=== PATIENT | female | born 2000 | race Caucasian/White ===

== ENCOUNTER 2018-02-12 08:03 | Emergency (ER) | payer BC ==
--- NOTE | 2018-02-12 08:33 | EDM.PDOC ---
ED HPI GENERAL MEDICAL PROBLEM - General Chief Complaint: Abdominal Pain Stated Complaint: ABDOMINAL PAIN Time Seen by Provider: 02/12/18 08:20 - History of Present Illness INITIAL COMMENTS - FREE TEXT/NARRATIVE: HISTORY AND PHYSICAL: History of present illness: The patient is a healthy 17-year-old female with a history of regular menstrual cycles and last regular period was January 21 presents with 4 days of suprapubic discomfort which does not localize right or left and does not involve nausea vomiting diarrhea or dysuria. She has not had any vaginal discharge and has not had any spotting between her periods and had her appendix removed 5 years ago. She has no history such as ovarian cysts or prior STDs and is in a monogamous relationship but is not using contraception. The patient did a test yesterday that was negative. She has no flank pain no upper abdominal pain no fevers chills or upper respiratory symptoms. The patient tried both Tylenol and Aleve and still feels discomfort. She is eating and drinking normally. Local family Dr. and has never had a gynecologic exam. The patient describes the pain as deep aching and stabbing. Review of systems: As per history of present illness and below otherwise all systems reviewed and negative. Past medical history: As per history of present illness and as reviewed below otherwise noncontributory. Surgical history: As per history of present illness and as reviewed below otherwise noncontributory. Social history: No reported history of drug or alcohol abuse. Family history: As per history of present illness and as reviewed below otherwise noncontributory. Physical exam: General: Well-developed well-nourished female who is nontoxic and moves easily in the ED. Vital signs are reviewed by me. HEENT: Atraumatic, normocephalic, negative for conjunctival pallor or scleral icterus, mucous membranes moist, throat clear, neck supple, nontender, trachea midline. Lungs: Clear to auscultation, breath sounds equal bilaterally, chest nontender. Heart: S1S2, regular rate and rhythm no overt murmurs Abdomen: Soft, nondistended, nontender on deep palpation and bowel sounds are normoactive.. Negative for masses or hepatosplenomegaly. Negative for costovertebral tenderness. Pelvis: Stable nontender. Genitourinary: External genitalia within normal limits and there is no overt vaginal bleeding or vaginal discharge. There was no cervical motion tenderness no uterine tenderness and the uterus is small and there is no adnexal fullness tenderness or masses appreciated. The patient was able to relax and tolerated the exam very well. Rectal: Deferred. Extremities: Atraumatic, negative for cords or calf pain. Neurovascular unremarkable. Neuro: Awake, alert, oriented. Cranial nerves II through XII unremarkable. Cerebellum unremarkable. Motor and sensory unremarkable throughout. Exam nonfocal. Diagnostics: UA urine culture UCG urine for gonorrhea and chlamydia Therapeutics: [] The patient has been given Pyridium and Cipro for home Impression: Suprapubic pain/UTI Definitive disposition and diagnosis as appropriate pending reevaluation and review of above. hypogastric Pain Score (Numeric/FACES): 7 - Related Data Allergies Allergy/AdvReac Type Severity Reaction Status Date / Time No Known Allergies Allergy Verified 02/12/18 08:19 Home Meds: Home Meds . [No Known Home Meds] 02/12/18 [History] Past Medical History - Past Surgical History GI Surgical History: Reports: Appendectomy Social & Family History - Family History Family Medical History: Noncontributory - Tobacco Use Smoking Status *Q: Never Smoker - Recreational Drug Use Recreational Drug Use: Yes Drug Use in Last 12 Months: Yes Recreational Drug Type: Reports: Marijuana/Hashish Recreational Drug Use Frequency: Rarely ED ROS GENERAL - Review of Systems Review Of Systems: ROS reveals no pertinent complaints other than HPI. ED EXAM, GENERAL - Physical Exam Exam: See Below (See dictation) Course - Vital Signs Last Recorded V/S: Last Vital Signs Temp 36.4 C 02/12/18 08:03 Pulse 63 02/12/18 08:03 Resp 18 02/12/18 08:03 BP 142/91 H 02/12/18 08:03 Pulse Ox 98 02/12/18 08:03 - Orders/Labs/Meds Orders: Active Orders 24 hr Category Date Time Status CHLAMYDIA AND GONORRHEA BY TMA Stat Lab 02/12/18 08:30 Ordered CULTURE URINE [RM] Stat Lab 02/12/18 08:20 Ordered HCG QUALITATIVE,URINE [URCHEM] Stat Lab 02/12/18 08:20 Ordered UA W/MICROSCOPIC [URIN] Stat Lab 02/12/18 08:20 Ordered Labs: Laboratory Tests 02/12/18 02/12/18 Range/Units 08:20 08:20 Urine Color YELLOW Urine Appearance SLT CLOUDY Urine pH 6.0 (5.0-8.0) Ur Specific Gaffney >= 1.030 (1.001-1.035) Urine Protein >=300 (NEGATIVE) mg/dL Urine Glucose (UA) NEGATIVE (NEGATIVE) mg/dL Urine Ketones TRACE H (NEGATIVE) mg/dL Urine Occult Blood SMALL H (NEGATIVE) Urine Nitrite NEGATIVE (NEGATIVE) Urine Bilirubin SMALL H (NEGATIVE) Urine Ictotest NEGATIVE Urine Urobilinogen 0.2 (<2.0) EU/dL Ur Leukocyte Esterase TRACE (NEGATIVE) Urine RBC 0-2 (0-2/HPF) Urine WBC 20-25 (0-5/HPF) Ur Epithelial Cells MOL (NONE-FEW) Urine Bacteria 1+ H (NEGATIVE) Urine Mucus LIGHT (NONE-MOD) Urine HCG, Qual NEGATIVE (NEGATIVE) Departure - Departure Time of Disposition: 09:10 Disposition: Home, Self-Care 01 Condition: Good Clinical Impression: Suprapubic pain UTI (urinary tract infection) Qualifiers: Urinary tract infection type: site unspecified Hematuria presence: without hematuria Qualified Code(s): N39.0 - Urinary tract infection, site not specified - Discharge Information Referrals: PCP,None [Primary Care Provider] - Forms: ED Department Discharge Additional Instructions: The following information is given to patients seen in the emergency department who are being discharged to home. This information is to outline your options for follow-up care. We provide all patients seen in our emergency department with a follow-up referral. The need for follow-up, as well as the timing and circumstances, are variable depending upon the specifics of your emergency department visit. If you don't have a primary care physician on staff, we will provide you with a referral. We always advise you to contact your personal physician following an emergency department visit to inform them of the circumstance of the visit and for follow-up with them and/or the need for any referrals to a consulting specialist. The emergency department will also refer you to a specialist when appropriate. This referral assures that you have the opportunity for followup care with a specialist. All of these measure are taken in an effort to provide you with optimal care, which includes your followup. Under all circumstances we always encourage you to contact your private physician who remains a resource for coordinating your care. When calling for followup care, please make the office aware that this follow-up is from your recent emergency room visit. If for any reason you are refused follow-up, please contact the [facility] emergency department at and ask to speak to the emergency department charge nurse. [facility] [address] [address] Please call and schedule a follow-up appointment using the resources given to today as we discussed. These push hydration and avoid caffeinated products. Please use contraception and less you choose to get . He will be contacted with culture results from tests that were sent off today in the next few days if the tests are positive otherwise if the tests are negative he will not be contacted. He will also be contacted if the care plan needs to change in any way. Return to ER as needed and as discussed. You have been given antibiotics and Pyridium for discomfort. Please take these as directed. - My Orders Last 24 Hours: My Active Orders 02/12/18 08:20 CULTURE URINE [RM] Stat HCG QUALITATIVE,URINE [URCHEM] Stat UA W/MICROSCOPIC [URIN] Stat 02/12/18 08:30 CHLAMYDIA AND GONORRHEA BY TMA Stat - Assessment/Plan Last 24 Hours: My Active Orders 02/12/18 08:20 CULTURE URINE [RM] Stat HCG QUALITATIVE,URINE [URCHEM] Stat UA W/MICROSCOPIC [URIN] Stat 02/12/18 08:30 CHLAMYDIA AND GONORRHEA BY TMA Stat
== END 2018-02-12 09:35 | disposition home or self-care (01) ==
LOC: MW.ED 08:03
DX: N39.0 Urinary tract infection, site not specified (principal)
CPT/HCPCS: 81001; 81025; 87086; 87491; 87591; 99282; 99284

== ENCOUNTER 2018-07-16 15:00 | Emergency (ER) | payer BC ==
[2018-07-16] MEDS ORDERED: Sodium Chloride 0.9% 1,000 ML IV ONE (15:09)
--- NOTE | 2018-07-16 15:13 | EDM.PDOC ---
ED HPI GENERAL MEDICAL PROBLEM - General Chief Complaint: Syncope Stated Complaint: BLACKING OUT Time Seen by Provider: 07/16/18 15:05 - History of Present Illness INITIAL COMMENTS - FREE TEXT/NARRATIVE: HISTORY AND PHYSICAL: History of present illness: Patient's a 17-year-old white female approximately 19 weeks who presents with a concern of feeling dizzy earlier in like she may pass out she sat down subsequently and this resolved with drinking some water she states she' s had poor oral intake due to intermittent nausea with this and vaginal discharge bleeding Review of systems: As per history of present illness and below otherwise all systems reviewed and negative. Past medical history: As per history of present illness and as reviewed below otherwise noncontributory. Surgical history: As per history of present illness and as reviewed below otherwise noncontributory. Social history: No reported history of drug or alcohol abuse. Family history: As per history of present illness and as reviewed below otherwise noncontributory. Physical exam: HEENT: Atraumatic, normocephalic, pupils reactive, negative for conjunctival pallor or scleral icterus, mucous membranes dry, throat clear, neck supple, nontender, trachea midline. Lungs: Clear to auscultation, breath sounds equal bilaterally, chest nontender. Heart: S1S2, regular, negative for clicks, rubs, or JVD. Abdomen: Soft, nondistended, nontender. Negative for masses or hepatosplenomegaly. Negative for costovertebral tenderness. Pelvis: Stable nontender. Genitourinary: Deferred. Rectal: Deferred. Extremities: Atraumatic, negative for cords or calf pain. Neurovascular unremarkable. Neuro: Awake, alert, oriented. Cranial nerves II through XII unremarkable. Cerebellum unremarkable. Motor and sensory unremarkable throughout. Exam nonfocal. Diagnostics: CBC CMP heart tones EKG orthostatic vitals Therapeutics: Saline 1 L bolus Impression: #1 second trimester intrauterine #2 dehydration #3 near syncope Definitive disposition and diagnosis as appropriate pending reevaluation and review of above. - Related Data Allergies Allergy/AdvReac Type Severity Reaction Status Date / Time No Known Allergies Allergy Verified 07/16/18 15:11 Home Meds: Home Meds Docosahexanoic Acid [ Dha] 1 tab PO DAILY 07/16/18 [History] Past Medical History - Past Surgical History GI Surgical History: Reports: Appendectomy Social & Family History - Family History Family Medical History: Noncontributory ED ROS GENERAL - Review of Systems Review Of Systems: ROS reveals no pertinent complaints other than HPI. ED EXAM, GENERAL - Physical Exam Exam: See Below (Dictation) Course - Vital Signs Last Recorded V/S: Last Vital Signs Temp 36.5 C 07/16/18 15:04 Pulse 85 07/16/18 15:04 Resp 18 07/16/18 15:04 BP 115/68 07/16/18 15:04 Pulse Ox 98 07/16/18 15:04 - Orders/Labs/Meds Orders: Active Orders 24 hr Category Date Time Status EKG Documentation Completion [RC] STAT Care 07/16/18 15:08 Active Heart Tones [RC] ASDIRECTED Care 07/16/18 15:08 Active Labs: Laboratory Tests 07/16/18 07/16/18 Range/Units 15:24 15:24 WBC 8.35 (4.0-11.0) K/uL RBC 3.83 L (4.30-5.90) M/uL Hgb 11.9 L (12.0-16.0) g/dL Hct 34.1 L (36.0-46.0) % MCV 89.0 (80.0-98.0) fL MCH 31.1 (27.0-32.0) pg MCHC 34.9 (31.0-37.0) g/dL RDW Std Deviation 43.8 (28.0-62.0) fl RDW Coeff of Maya 13 (11.0-15.0) % Plt Count 197 (150-400) K/uL MPV 10.30 (7.40-12.00) fL Neut % (Auto) 83.1 H (48.0-80.0) % Lymph % (Auto) 9.0 L (16.0-40.0) % Ashley % (Auto) 6.9 (0.0-15.0) % Eos % (Auto) 0.8 (0.0-7.0) % Baso % (Auto) 0.2 (0.0-1.5) % Neut # (Auto) 6.9 H (1.4-5.7) K/uL Lymph # (Auto) 0.8 (0.6-2.4) K/uL Ashley # (Auto) 0.6 (0.0-0.8) K/uL Eos # (Auto) 0.1 (0.0-0.7) K/uL Baso # (Auto) 0.0 (0.0-0.1) K/uL Nucleated RBC % 0.0 /100WBC Nucleated RBCs # 0 K/uL Sodium 136 (136-145) mmol/L Potassium 3.5 (3.5-5.1) mmol/L Chloride 104 (98-107) mmol/L Carbon Dioxide 22.7 (21.0-32.0) mmol/L BUN 10 (7.0-18.0) mg/dL Creatinine 0.7 (0.6-1.0) mg/dL Est Cr Clr Drug Dosing 121.01 mL/min Estimated GFR (MDRD) > 60.0 ml/min Glucose 87 (74-106) mg/dL Calcium 9.6 (8.5-10.1) mg/dL Total Bilirubin 0.5 (0.2-1.0) mg/dL AST 14 L (15-37) IU/L ALT 15 (14-63) IU/L Alkaline Phosphatase 54 (46-116) U/L Total Protein 7.1 (6.4-8.2) g/dL Albumin 3.4 (3.4-5.0) g/dL Globulin 3.7 (2.6-4.0) g/dL Albumin/Globulin Ratio 0.9 (0.9-1.6) Meds: Medications Discontinued Medications Generic Name Dose Route Start Last Admin Trade Name Freq PRN Reason Stop Dose Admin Sodium Chloride 1,000 mls @ 999 mls/hr 07/16/18 15:09 07/16/18 15:33 Normal Saline IV 07/16/18 16:09 999 mls/hr STAT ONE Administration Departure - Departure Time of Disposition: 16:12 Disposition: Home, Self-Care 01 Condition: Good Clinical Impression: Second trimester , Dehydration, Near syncope - Discharge Information Referrals: PCP,None [Primary Care Provider] - Forms: ED Department Discharge Additional Instructions: The following information is given to patients seen in the emergency department who are being discharged to home. This information is to outline your options for follow-up care. We provide all patients seen in our emergency department with a follow-up referral. The need for follow-up, as well as the timing and circumstances, are variable depending upon the specifics of your emergency department visit. If you don't have a primary care physician on staff, we will provide you with a referral. We always advise you to contact your personal physician following an emergency department visit to inform them of the circumstance of the visit and for follow-up with them and/or the need for any referrals to a consulting specialist. The emergency department will also refer you to a specialist when appropriate. This referral assures that you have the opportunity for followup care with a specialist. All of these measure are taken in an effort to provide you with optimal care, which includes your followup. Under all circumstances we always encourage you to contact your private physician who remains a resource for coordinating your care. When calling for followup care, please make the office aware that this follow-up is from your recent emergency room visit. If for any reason you are refused follow-up, please contact the [facility] emergency department at and asked to speak to the emergency department charge nurse. [facility] [address] [place] [address] Push fluids follow up clinic above: Schedule routine appointment follow-up FLAT [employer]TER as needed as discussed and return as needed as discussed - My Orders Last 24 Hours: My Active Orders 07/16/18 15:08 EKG Documentation Completion [RC] STAT Heart Tones [RC] ASDIRECTED - Assessment/Plan Last 24 Hours: My Active Orders 07/16/18 15:08 EKG Documentation Completion [RC] STAT Heart Tones [RC] ASDIRECTED
[2018-07-16 15:55] LABS: CHLORIDE,CL 104 mmol/L (98-107); SODIUM,NA 136 mmol/L (136-145)
== END 2018-07-16 16:33 | disposition home or self-care (01) ==
LOC: MW.ED 15:00
DX: O99.282 Endocrine, nutritional and metabolic diseases complicating pregnancy, second trimester (principal); E86.0 Dehydration; R55 Syncope and collapse; Z3A.19 19 weeks gestation of pregnancy
CPT/HCPCS: 36415; 80053; 85025; 93005; 96360; 99284; J7040

== ENCOUNTER 2018-11-30 09:59 | Inpatient (IN) | payer BC ==
[2018-11-30] MEDS: Lactated Ringers 1,000 ML IV SCH ×4 (11:05→21:41)
[2018-11-30] MEDS ORDERED: Terbutaline 1 MG/ML SDV SUBCUT ONE (11:08)
--- NOTE | 2018-11-30 12:17 | PCM.PREANE ---
Preanesthetic Assessment - Allergies Allergies/Adverse Reactions: Allergies Allergy/AdvReac Type Severity Reaction Status Date / Time Latex, Natural Rubber Allergy Rash Verified 11/30/18 10:14 PreAnesthesia Questionnaire - Infectious Disease History Infectious Disease History: Reports: Chicken Pox - Past Surgical History GI Surgical History: Reports: Appendectomy - HOME MEDS Home Medications: Home Meds Docosahexanoic Acid [ Dha] 1 tab PO DAILY 07/16/18 [History]
--- NOTE | 2018-11-30 16:00 | PCM.PREANE ---
Preanesthetic Assessment - Anesthesia/Transfusion/Family Hx Anesthesia History: Prior Anesthesia Without Reaction Family History of Anesthesia Reaction: No Transfusion History: No Prior Transfusion(s) Intubation History: Unknown - Review of Systems General: No Symptoms Pulmonary: No Symptoms Cardiovascular: No Symptoms Gastrointestinal: No Symptoms Neurological: No Symptoms Other: Reports: None - Physical Assessment Height: 5 ft 7 in Weight: 78.018 kg ASA Class: 2 Mental Status: Alert & Oriented x3 Airway Class: Mallampati = 2 Dentition: Reports: Normal Dentition Thyro-Mental Finger Breadths: 3 Mouth Opening Finger Breadths: 3 ROM/Head Extension: Full Lungs: Clear to Auscultation, Normal Respiratory Effort Cardiovascular: Regular Rate, Regular Rhythm - Allergies Allergies/Adverse Reactions: Allergies Allergy/AdvReac Type Severity Reaction Status Date / Time Latex, Natural Rubber Allergy Rash Verified 11/30/18 10:14 - Blood Blood Available: No - Anesthesia Plan Pre-Op Medication Ordered: None - Acknowledgements Anesthesia Type Planned: Spinal (general anesthesia back-up plan) Pt an Appropriate Candidate for the Planned Anesthesia: Yes Alternatives and Risks of Anesthesia Discussed w Pt/Guardian: Yes Pt/Guardian Understands and Agrees with Anesthesia Plan: Yes PreAnesthesia Questionnaire HEENT History: Reports: Impaired Vision Cardiovascular History: Reports: None Respiratory History: Reports: Asthma, Other (See Below) 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 Gastrointestinal History: Reports: None Genitourinary History: Reports: None MARKETING DIRECTOR ASSISTED LIVING History: Reports: Musculoskeletal History: Reports: None Neurological History: Reports: Headaches, Chronic, Head Trauma Psychiatric History: Reports: Panic Attack Endocrine/Metabolic History: Reports: None Hematologic History: Reports: None Immunologic History: Reports: None Oncologic (Cancer) History: Reports: None Dermatologic History: Reports: None - Infectious Disease History Infectious Disease History: Reports: Chicken Pox, Shingles - Past Surgical History HEENT Surgical History: Reports: None GI Surgical History: Reports: Appendectomy Female Surgical History: Reports: None - SUBSTANCE USE Smoking Status *Q: Never Smoker Second Hand Smoke Exposure: No Recreational Drug Use History: No - HOME MEDS Home Medications: Home Meds Docosahexanoic Acid [ Dha] 1 tab PO DAILY 07/16/18 [History] - CURRENT (IN HOUSE) MEDS Current Meds: Current Medications Lactated Ringer's (Ringers, Lactated) 1,000 mls @ 999 mls/hr IV ASDIRECTED DAVID Last Admin: 11/30/18 11:45 Dose: 999 mls/hr Discontinued Medications Terbutaline Sulfate (Brethine) 0.25 mg SUBCUT ONETIME ONE Stop: 11/30/18 11:09
[2018-11-30] MEDS ORDERED: Ondansetron 4 MG/2 ML SDV ONE (16:13)
[2018-11-30] MEDS ORDERED: Propofol 200 MG/20 ML SDV ONE (16:13)
[2018-11-30] MEDS ORDERED: Oxytocin 10 Units/1 ML SDV ONE (16:14)
[2018-11-30] MEDS ORDERED: Morphine PF 10 MG/10 ML SDV ONE (16:36)
[2018-11-30] MEDS ORDERED: ceFAZolin 1 GM Vial ONE (16:48)
[2018-11-30] MEDS ORDERED: Sodium Chloride 0.9% 20 ML ONE (16:48)
--- NOTE | 2018-11-30 16:48 | PCM.LDHP ---
L&D History of Present Illness - General Date of Service: 11/30/18 Admit Problem/Dx: Patient Status Order with Admit Dx/Problem 11/30/18 10:52 Patient Status [ADT] Routine Admission Diagnosis/Problem Admission Diagnosis/Problem 11/30/18 16:43 18yo EDC 12/08/2018 38 6/7wks O+, R-equivocal, GBS neg. 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 Source of Information: Patient History Limitations: Reports: No Limitations - History of Present Illness Improves with: Reports: None Worsens with: Reports: None Associated Symptoms: Reports: N - Related Data Allergies/Adverse Reactions: Allergies Allergy/AdvReac Type Severity Reaction Status Date / Time Latex, Natural Rubber Allergy Rash Verified 11/30/18 10:14 Home Medications: Home Meds Docosahexanoic Acid [ Dha] 1 tab PO DAILY 07/16/18 [History] Past Medical History HEENT History: Reports: Impaired Vision Cardiovascular History: Reports: None Respiratory History: Reports: Asthma, Other (See Below) 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 Gastrointestinal History: Reports: None Genitourinary History: Reports: None [employer] SUPERVISOR History: Reports: Musculoskeletal History: Reports: None Neurological History: Reports: Headaches, Chronic, Head Trauma Psychiatric History: Reports: Panic Attack Endocrine/Metabolic History: Reports: None Hematologic History: Reports: None Immunologic History: Reports: None Oncologic (Cancer) History: Reports: None Dermatologic History: Reports: None - Infectious Disease History Infectious Disease History: Reports: Chicken Pox, Shingles - Past Surgical History HEENT Surgical History: Reports: None GI Surgical History: Reports: Appendectomy Female Surgical History: Reports: None Social & Family History - Family History Family Medical History: Noncontributory HEENT: Reports: Impaired Vision Cardiac: Reports: Heart Failure, Hypertension, IN Respiratory: Reports: Asthma GI: Reports: None : Reports: None OBGYN: Reports: Musculoskeletal: Reports: Arthritis Neurological: Reports: Alzheimers Disease, CVA, Neuropathy, Peripheral Psychiatric: Reports: Anxiety Endocrine/Metabolic: Reports: Diabetes, type II, Obesity/MBI 30+ Hematologic: Reports: Bleeding Disorder Immunologic: Reports: None Dermatologic: Reports: None Oncologic: Reports: Breast, Liver, Metastatic - Tobacco Use Smoking Status *Q: Never Smoker Second Hand Smoke Exposure: No - Caffeine Use Caffeine Use: Reports: Soda - Recreational Drug Use Recreational Drug Use: No H&P Review of Systems - Review of Systems: Review Of Systems: See Below General: Reports: No Symptoms HEENT: Reports: No Symptoms Pulmonary: Reports: No Symptoms Cardiovascular: Reports: No Symptoms Gastrointestinal: Reports: No Symptoms Genitourinary: Reports: No Symptoms Musculoskeletal: Reports: No Symptoms Skin: Reports: No Symptoms Psychiatric: Reports: No Symptoms Neurological: Reports: No Symptoms Hematologic/Lymphatic: Reports: No Symptoms Immunologic: Reports: No Symptoms L&D Exam - Exam Exam: See Below - Vital Signs Weight: 78.018 kg - OB Specific Movement: Active Heart Tones: Present Heart Rate (FHR) Variability: Moderate (6-25 bmp) Presentation: Vertex - Exam General: Alert, Oriented, Cooperative, Mild Distress Lungs: Clear to Auscultation, Normal Respiratory Effort. No: Decreased Breath Sounds Cardiovascular: Regular Rate, Regular Rhythm, Normal S1, Normal S2. No: Irregular Rhythm GI/Abdominal Exam: Soft, Non-Tender Rectal Exam: Deferred Genitourinary: Deferred Back Exam: Normal Inspection, Full Range of Motion Extremities: Normal Inspection, Normal Range of Motion, Non-Tender, No Pedal Edema Skin: Warm, Dry, Intact Neurological: Cranial Nerves Intact, Strength Equal Bilateral, Normal Gait, Normal Speech, Normal Tone Psychiatric: Alert, Normal Affect, Normal Mood - Problem List (1) Supervision of normal IUP (intrauterine ) in primigravida SNOMED Code(s): 83726808, 977866340, [id number], [id number] ICD Code: Z34.00 - ENCNTR FOR SUPRVSN OF NORMAL FIRST , UNSP TRIMESTER Status: Acute Current Visit: Yes Qualifiers: Trimester: third trimester Qualified Code(s): Z34.03 - Encounter for supervision of normal first , third trimester Problem List Initiated/Reviewed/Updated: Yes Orders Last 24hrs: Active Orders 24 hr Category Date Time Status Patient Status [ADT] Routine ADT 11/30/18 10:52 Active Non Stress Test [RC] PER UNIT ROUTINE Care 11/30/18 10:52 Active Up ad Liliana [RC] ASDIRECTED Care 11/30/18 10:52 Active Vaginal Exam [RC] Click to Edit Care 11/30/18 10:52 Active Vital Signs [RC] PER UNIT ROUTINE Care 11/30/18 10:52 Active Lactated Ringers [Ringers, Lactated] 1,000 ml Med 11/30/18 11:15 Active IV ASDIRECTED Resuscitation Status Routine Resus Stat 11/30/18 10:51 Ordered Medication Orders Lactated Ringer's (Ringers, Lactated) 1,000 mls @ 999 mls/hr IV ASDIRECTED DAVID Last Admin: 11/30/18 16:19 Dose: 999 mls/hr Infusion: 11/30/18 12:46 Dose: 999 mls/hr Admin: 11/30/18 11:45 Dose: 999 mls/hr Infusion: 11/30/18 11:45 Dose: 999 mls/hr Admin: 11/30/18 11:05 Dose: 999 mls/hr Assessment/Plan Comment:: PCS A: 18yo EDC 12/08/2018 38 6/7wks O+, R-equivocal, GBS neg. 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 Dr Henriquez surgeon.
[2018-11-30] MEDS ORDERED: Sodium Chloride 0.9% 10 ML SDV IV PRN (16:52)
[2018-11-30] MEDS ORDERED: Sodium Chloride 0.9% 2.5 ML Syringe FLUSH PRN (16:52)
[2018-11-30] MEDS ORDERED: ceFAZolin 2 GM in Premix Bag 1 BAG IV ONE (16:52)
[2018-11-30] MEDS ORDERED: Sodium Chloride 0.9% 10 ML Syringe FLUSH PRN (16:52)
[2018-11-30] MEDS ORDERED: Citric Acid/Sodium Citrate Solution 30 ML Cup PO ONE (16:52)
[2018-11-30] MEDS ORDERED: diphenhydrAMINE 50 MG/ML SDV IVPUSH PRN ×2 (16:53→17:57)
[2018-11-30] MEDS ORDERED: Acetaminophen/oxyCODONE 325-5 MG Tab PO PRN ×2 (16:53→17:57)
[2018-11-30] MEDS ORDERED: fentaNYL 100 MCG/2 ML SDV IVPUSH PRN (16:53)
[2018-11-30] MEDS ORDERED: Ondansetron 4 MG/2 ML SDV IVPUSH PRN ×2 (16:53→17:57)
[2018-11-30] MEDS ORDERED: Naloxone 0.4 MG/ML Syringe IVPUSH PRN (16:53)
[2018-11-30] MEDS ORDERED: Oxytocin/0.9 % Sodium Chloride 30 UNIT/500 ML BAG IV SCH (17:00)
[2018-11-30] MEDS ORDERED: Lactated Ringers 1,000 ML IV SCH (17:00)
[2018-11-30] MEDS ORDERED: Bisacodyl 10 MG Supp RECTAL PRN (17:57)
[2018-11-30] MEDS ORDERED: Lanolin 100% Cream 7 GM Tube TOP PRN (17:57)
--- NOTE | 2018-11-30 18:00 | PCM.OPNOTE ---
- General Post-Op/Procedure Note Date of Surgery/Procedure: 11/30/18 Operative Procedure(s): Primary C/section Pre Op Diagnosis: [id number] wks Chandrakant breech presentation. Post-Op Diagnosis: Same Anesthesia Technique: Spinal Primary Surgeon: Reno Henriquez Remittance Clerk: Carissa Burdick EBL in mLs: 600 Complications: None Condition: Good
[2018-11-30] MEDS: Ketorolac 30 MG/ML SDV IVPUSH SCH ×2 (18:38→23:50)
--- NOTE | 2018-11-30 18:49 | PCM.POSTAN ---
POST ANESTHESIA ASSESSMENT - MENTAL STATUS Mental Status: Alert Free Text/Narrative:: Doing well. - VITAL SIGNS Pulse Rate: 58 SaO2: 96 Resp Rate: 12 Blood Pressure: 118/70 Temperature: 38.7 C - RESPIRATORY Respiratory Status: Respiratory Rate WNL - CARDIOVASCULAR CV Status: Pulse Rate WNL - GASTROINTESTINAL GI Status: No Symptoms - PAIN Pain Score: 0 (SAB still inplace) - POST OP HYDRATION Hydration Status: Adequate & Stable (Doing well. Will transfer to room in good condition.)
--- NOTE | 2018-11-30 19:39 | OR ---
SURGEON: Reno Henriquez MD DATE OF PROCEDURE: 11/30/2018 PREOPERATIVE DIAGNOSES: Intrauterine at 39 weeks, bicornuate uterus, breech presentation. POSTOPERATIVE DIAGNOSES: Intrauterine at 39 weeks, bicornuate uterus, breech presentation. OPERATION PERFORMED: Primary low-transverse section. PRIMARY SURGEON: Reno Henriquez MD. LEVERMAN: Carissa Burdick, certified nurse acquisition marketing coordinator. ANESTHESIA: Spinal, Dr. Trejo. ESTIMATED BLOOD LOSS: 600 mL. COMPLICATIONS: None. FINDING: A female fetus in stacey breech presentation. This patient is 18. She is 39 weeks . She is followed in our clinic primarily by our acquisition marketing coordinator. She had a bicornuate uterus. She is found to be in the breech presentation. She is admitted for possible version, but after discussing the version with limited success with a bicornuate uterus with her family, she has elected to have a primary low-transverse section. PROCEDURE IN DETAIL: The patient was brought to the OR, properly identified, and after adequate level of spinal anesthesia with a Hemphill catheter in the bladder, the patient was prepped and draped in sterile fashion as usual, and then, a low-transverse Pfannenstiel skin incision was done. Rectus fascia and Zeferino's fascia were opened in the direction of the incision. The 2 recti muscles were , and peritoneal cavity was entered. Bladder flap was raised in the usual manner pushing the bladder away from the lower uterine segment. Low transverse uterine incision was done and extended manually with hand, fetus was delivered, was in stacey breech presentation, handed to the nurse resuscitator who was present at the time of delivery. The fetus cried immediately. score reported to be 8 and 9. The placenta delivered spontaneous, complete, and intact, and repair of the lower uterine segment was done with 2-0 Vicryl continuous interlocking for hemostasis. The peritoneal cavity evacuated completely from all blood and blood clot and closed with 3-0 Vicryl continuous. The rectus fascia was closed with #1 PDS continuous. Zeferino's fascia with 3-0 Vicryl continuous, skin closed in subcuticular fashion and Dermabond. Instrument and sponge count was correct. The patient tolerated the procedure well, went to recovery room in stable general condition. COLLEEN / FRED /[id number]
[2018-11-30] MEDS: Nalbuphine 10 MG/1 ML Vial IVPUSH PRN (20:14)
[2018-11-30] MEDS: Docusate Sodium 100 MG Cap PO SCH (20:14)
[2018-12-01] MEDS: Nalbuphine 10 MG/1 ML Vial IVPUSH PRN (00:40)
[2018-12-01] MEDS: Lactated Ringers 1,000 ML IV SCH ×2 (05:46→05:51)
[2018-12-01] MEDS: Ketorolac 30 MG/ML SDV IVPUSH SCH ×3 (05:46→18:15)
--- NOTE | 2018-12-01 11:28 | PCM.PNPP ---
- General Info Date of Service: 12/01/18 Admission Dx/Problem (Free Text): Patient Status Order with Admit Dx/Problem 11/30/18 10:52 Patient Status [ADT] Routine Admission Diagnosis/Problem Admission Diagnosis/Problem 11/30/18 16:43 18yo EDC 12/08/2018 38 6/7wks O+, R-equivocal, GBS neg. 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 Functional Status: Reports: Pain Controlled, Tolerating Diet, Ambulating, Urinating (via whitehead) - Review of Systems General: Reports: No Symptoms HEENT: Reports: No Symptoms Pulmonary: Reports: No Symptoms Cardiovascular: Reports: No Symptoms Gastrointestinal: Reports: No Symptoms Genitourinary: Reports: No Symptoms Musculoskeletal: Reports: No Symptoms Skin: Reports: No Symptoms Neurological: Reports: No Symptoms Psychiatric: Reports: No Symptoms - General Info Date of Service: 12/01/18 - Patient Data Vital Signs - Most Recent: Last Vital Signs Temp 36.3 C 12/01/18 07:28 Pulse 51 L 12/01/18 07:28 Resp 16 12/01/18 10:00 BP 107/59 L 12/01/18 07:28 Pulse Ox 98 12/01/18 10:00 Weight - Most Recent: 78.018 kg I&O - Last 24 Hours: Intake & Output 11/30/18 12/01/18 12/01/18 22:59 06:59 14:59 Intake Total 5000 1000 Output Total 700 1600 850 Balance 4300 -600 -850 Lab Results - Last 24 Hours: Laboratory Results - last 24 hr 11/30/18 11/30/18 12/01/18 Range/Units 17:03 17:03 05:51 WBC 9.21 (4.0-11.0) K/uL RBC 3.33 L (4.30-5.90) M/uL Hgb 9.8 L 9.4 L (12.0-16.0) g/dL Hct 30.0 L 29.0 L (36.0-46.0) % MCV 90.1 (80.0-98.0) fL MCH 29.4 (27.0-32.0) pg MCHC 32.7 (31.0-37.0) g/dL RDW Std Deviation 40.3 (28.0-62.0) fl RDW Coeff of Maya 13 (11.0-15.0) % Plt Count 155 (150-400) K/uL MPV 11.70 (7.40-12.00) fL Nucleated RBC % 0.0 /100WBC Nucleated RBCs # 0 K/uL Blood Type O POSITIVE Antibody Screen NEGATIVE Med Orders - Current: Current Medications Bisacodyl (Dulcolax) 10 mg RECTAL ONETIME PRN PRN Reason: Constipation Diphenhydramine HCl (Benadryl) 25 mg IVPUSH Q4H PRN PRN Reason: Itching Stop: 12/01/18 16:53 Last Admin: 11/30/18 21:30 Dose: 25 mg Diphenhydramine HCl (Benadryl) 25 mg IVPUSH Q6H PRN PRN Reason: Itching or Nausea Docusate Sodium (Colace) 100 mg PO BID DAVID Last Admin: 11/30/18 20:14 Dose: 100 mg Emollient Ointment (Lansinoh Hpa) 0 gm TOP ASDIRECTED PRN PRN Reason: Sore Nipples Fentanyl (Sublimaze) 50 mcg IVPUSH Q1H PRN PRN Reason: Pain (severe 7-10) Lactated Ringer's (Ringers, Lactated) 1,000 mls @ 999 mls/hr IV ASDIRECTED [facility] Last Infusion: 11/30/18 17:20 Dose: Infused Lactated Ringer's (Ringers, Lactated) 1,000 mls @ 500 mls/hr IV BOLUS [facility] Oxytocin/Sodium Chloride (Oxytocin 30 Unit/500 Ml-Ns) 30 unit in 500 mls @ 250 mls/hr IV TITRATE [facility] Lactated Ringer's (Ringers, Lactated) 1,000 mls @ 125 mls/hr IV ASDIRECTED [facility] Last Admin: 12/01/18 05:51 Dose: 125 mls/hr Ibuprofen (Motrin) 800 mg PO Q8H PRN PRN Reason: mild pain or fever Ketorolac Tromethamine (Toradol) 30 mg IVPUSH Q6H [facility] Stop: 12/01/18 18:01 Last Admin: 12/01/18 05:46 Dose: 30 mg Nalbuphine HCl (Nubain) 5 mg IVPUSH ASDIRECTED PRN PRN Reason: Itching Last Admin: 12/01/18 00:40 Dose: 5 mg Naloxone HCl (Narcan) 0.1 mg IVPUSH ONETIME PRN PRN Reason: Respiratory Depression Stop: 12/01/18 16:53 Ondansetron HCl (Zofran) 4 mg IVPUSH Q6H PRN PRN Reason: Nausea Ondansetron HCl (Zofran) 4 mg IVPUSH Q4H PRN PRN Reason: Nausea/Vomiting Oxycodone/Acetaminophen (Percocet 325-5 Mg) 2 tab PO Q6H PRN PRN Reason: Pain (moderate 4-6) Oxycodone/Acetaminophen (Percocet 325-5 Mg) 1 tab PO Q4H PRN PRN Reason: Pain (moderate 4-6) Oxycodone/Acetaminophen (Percocet 325-5 Mg) 2 tab PO Q4H PRN PRN Reason: Pain (moderate 4-6) Sodium Chloride (Saline Flush) 10 ml FLUSH ASDIRECTED PRN PRN Reason: Keep Vein Open Sodium Chloride (Saline Flush) 2.5 ml FLUSH ASDIRECTED PRN PRN Reason: Keep Vein Open Sodium Chloride (Normal Saline) 10 ml IV ASDIRECTED PRN PRN Reason: IV Use Discontinued Medications Cefazolin Sodium (Ancef) Confirm Administered Dose 2 gm .ROUTE .STK-MED ONE Stop: 11/30/18 16:49 Citric Acid/Sodium Citrate (Bicitra Solution) 30 ml PO ONETIME ONE Stop: 11/30/18 16:53 Acetaminophen (Ofirmev) Confirm Administered Dose 100 mls @ as directed IV .STK- MED ONE Stop: 11/30/18 16:28 Sodium Chloride (Normal Saline) Confirm Administered Dose 20 mls @ as directed .ROUTE .STK-MED ONE Stop: 11/30/18 16:49 Cefazolin Sodium/Dextrose 2 gm (/ Premix) 50 mls @ 100 mls/hr IV ONETIME ONE Stop: 11/30/18 17:21 Morphine Sulfate (Duramorph Pf) Confirm Administered Dose 10 mg .ROUTE .STK-MED ONE Stop: 11/30/18 16:37 Ondansetron HCl (Zofran) Confirm Administered Dose 4 mg .ROUTE .STK-MED ONE Stop: 11/30/18 16:14 Oxytocin (Pitocin) Confirm Administered Dose 30 unit .ROUTE .STK-MED ONE Stop: 11/30/18 16:15 Propofol (Diprivan 20 Ml) Confirm Administered Dose 200 mg .ROUTE .STK-MED ONE Stop: 11/30/18 16:14 Terbutaline Sulfate (Brethine) 0.25 mg SUBCUT ONETIME ONE Stop: 11/30/18 11:09 - Interaction Disposition, : in Room with Family Infant Interaction: Holding Infant Infant Feeding: Bottle Fed Infant Support Person: Mother, Sister - Recovery Exam Fundal Tone: Firm Fundal Level: 1 Fingerbreadths Below Umbilicus Fundal Placement: Midline Lochia Amount: Small Lochia Color: Rubra/Red Perineum Description: Intact, Minimal Bruising/Swelling Episiotomy/Laceration: None - Exam General: Alert, Oriented, Cooperative, No Acute Distress Lungs: Normal Respiratory Effort GI/Abdominal Exam: Soft, Non-Tender Extremities: Normal Inspection, Non-Tender, No Pedal Edema Skin: Warm, Dry, Intact Wound/Incisions: Healing Well, Dressing Dry and Intact Neurological: No New Focal Deficit, Normal Speech, Normal Tone, Strength Equal Bilateral Psy/Mental Status: Alert, Normal Affect, Normal Mood - Problem List & Annotations (1) Supervision of normal IUP (intrauterine ) in primigravida SNOMED Code(s): 83118193, 584987370, 734498502, 910727805 Code(s): Z34.00 - ENCNTR FOR SUPRVSN OF NORMAL FIRST , UNSP TRIMESTER Status: Acute Current Visit: Yes Qualifiers: Trimester: third trimester Qualified Code(s): Z34.03 - Encounter for supervision of normal first , third trimester (2) delivery indicated due to breech presentation SNOMED Code(s): 779209215, 170164045 Code(s): O32.1XX0 - MATERNAL CARE FOR BREECH PRESENTATION, UNSP Status: Acute Priority: High Current Visit: Yes - Problem List Review Problem List Initiated/Reviewed/Updated: Yes - Plan Plan:: PCS A: 18yo EDC 12/08/2018 38 6/7wks O+, R-equivocal, GBS neg. 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 Dr Kadum surgeon. PPD#1 A: VSS, AF, Lochia small, Fundus firm -2bu. Bonding well with infant, pain well managed. P; continue pp POC. Encouraged to get OOB and walk.
[2018-12-01] MEDS: Docusate Sodium 100 MG Cap PO SCH ×2 (12:14→20:42)
[2018-12-02] MEDS ORDERED: Ibuprofen 800 MG Tab PO PRN
[2018-12-02] MEDS: Acetaminophen/oxyCODONE 325-5 MG Tab PO PRN ×3 (00:06→10:34)
--- NOTE | 2018-12-02 07:53 | PCM.DCSUM1 ---
Discharge Summary - Hospital Course Free Text/Narrative:: Discharge home with . Follow up in 6 weeks for incision check and 6 weeks for . Diagnosis: Stroke: No - Discharge Data Discharge Date: 12/02/18 Discharge Disposition: Home, Self-Care 01 Condition: Good - Discharge Diagnosis/Problem(s) (1) Supervision of normal IUP (intrauterine ) in primigravida SNOMED Code(s): 99164781, 690966749, 899485914, 290692253 ICD Code: Z34.00 - ENCNTR FOR SUPRVSN OF NORMAL FIRST , UNSP TRIMESTER Status: Acute Current Visit: Yes Qualifiers: Trimester: third trimester Qualified Code(s): Z34.03 - Encounter for supervision of normal first , third trimester (2) delivery indicated due to breech presentation SNOMED Code(s): 991200024, 926694716 ICD Code: O32.1XX0 - MATERNAL CARE FOR BREECH PRESENTATION, UNSP Status: Acute Priority: High Current Visit: Yes - Patient Summary/Data Operative Procedure(s) Performed: Primary C/section - Patient Instructions Diet: Usual Diet as Tolerated Activity: As Tolerated, No Strenuous Activities, Rest and Relax Today Driving: Do Not Drive Showering/Bathing: May Shower Wound/Incision Care: Keep Operative Site/Wound Site Clean and Dry Notify Provider of: Fever, Increased Pain, Swelling and Redness, Drainage, Nausea and/or Vomiting Other/Special Instructions: Discharge home with . Follow up in 6 weeks for incision check and 6 weeks for . - Discharge Plan *PRESCRIPTION DRUG MONITORING PROGRAM REVIEWED*: Not Applicable *COPY OF PRESCRIPTION DRUG MONITORING REPORT IN PATIENT LYNN: Not Applicable Prescriptions/Med Rec: Acetaminophen/oxyCODONE [Percocet 325-5 MG] 2 tab PO Q6H PRN #30 tablet PRN Reason: Pain (Moderate 4-6) Ibuprofen [Motrin] 800 mg PO Q8H PRN #90 tablet PRN Reason: mild pain or fever Home Medications: Home Meds Docosahexanoic Acid [ Dha] 1 tab PO DAILY 07/16/18 [History] Acetaminophen/oxyCODONE [Percocet 325-5 MG] 2 tab PO Q6H PRN #30 tablet [Rx] Ibuprofen [Motrin] 800 mg PO Q8H PRN #90 tablet 12/02/18 [Rx] Oxygen Therapy Mode: Room Air - Discharge Summary/Plan Comment DC Time >30 min.: Yes - General Info Date of Service: 12/02/18 Admission Dx/Problem (Free Text: Patient Status Order with Admit Dx/Problem 11/30/18 10:52 Patient Status [ADT] Routine Admission Diagnosis/Problem Admission Diagnosis/Problem 11/30/18 16:43 18yo EDC 12/08/2018 38 6/7wks O+, R-equivocal, GBS neg. 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 Functional Status: Reports: Pain Controlled, Tolerating Diet, Ambulating, Urinating - Review of Systems General: Reports: No Symptoms HEENT: Reports: No Symptoms Pulmonary: Reports: No Symptoms Cardiovascular: Reports: No Symptoms Gastrointestinal: Reports: No Symptoms Genitourinary: Reports: No Symptoms Musculoskeletal: Reports: No Symptoms Skin: Reports: No Symptoms Neurological: Reports: No Symptoms Psychiatric: Reports: No Symptoms - Patient Data Vitals - Most Recent: Last Vital Signs Temp 36.9 C 12/02/18 07:09 Pulse 56 L 12/02/18 07:09 Resp 14 12/02/18 07:09 BP 99/48 L 12/02/18 07:09 Pulse Ox 97 12/02/18 07:09 Weight - Most Recent: 78.018 kg Med Orders - Current: Current Medications Bisacodyl (Dulcolax) 10 mg RECTAL ONETIME PRN PRN Reason: Constipation Diphenhydramine HCl (Benadryl) 25 mg IVPUSH Q6H PRN PRN Reason: Itching or Nausea Docusate Sodium (Colace) 100 mg PO BID [facility] Last Admin: 12/01/18 20:42 Dose: 100 mg Emollient Ointment (Lansinoh Hpa) 0 gm TOP ASDIRECTED PRN PRN Reason: Sore Nipples Fentanyl (Sublimaze) 50 mcg IVPUSH Q1H PRN PRN Reason: Pain (severe 7-10) Lactated Ringer's (Ringers, Lactated) 1,000 mls @ 999 mls/hr IV ASDIRECTED [facility]ID Last Infusion: 11/30/18 17:20 Dose: Infused Lactated Ringer's (Ringers, Lactated) 1,000 mls @ 500 mls/hr IV BOLUS [facility] Oxytocin/Sodium Chloride (Oxytocin 30 Unit/500 Ml-Ns) 30 unit in 500 mls @ 250 mls/hr IV TITRATE [facility] Lactated Ringer's (Ringers, Lactated) 1,000 mls @ 125 mls/hr IV ASDIRECTED [facility] Last Admin: 12/01/18 05:51 Dose: 125 mls/hr Ibuprofen (Motrin) 800 mg PO Q8H PRN PRN Reason: mild pain or fever Nalbuphine HCl (Nubain) 5 mg IVPUSH ASDIRECTED PRN PRN Reason: Itching Last Admin: 12/01/18 00:40 Dose: 5 mg Ondansetron HCl (Zofran) 4 mg IVPUSH Q6H PRN PRN Reason: Nausea Ondansetron HCl (Zofran) 4 mg IVPUSH Q4H PRN PRN Reason: Nausea/Vomiting Oxycodone/Acetaminophen (Percocet 325-5 Mg) 2 tab PO Q6H PRN PRN Reason: Pain (moderate 4-6) Oxycodone/Acetaminophen (Percocet 325-5 Mg) 1 tab PO Q4H PRN PRN Reason: Pain (moderate 4-6) Oxycodone/Acetaminophen (Percocet 325-5 Mg) 2 tab PO Q4H PRN PRN Reason: Pain (moderate 4-6) Last Admin: 12/02/18 04:57 Dose: 2 tab Sodium Chloride (Saline Flush) 10 ml FLUSH ASDIRECTED PRN PRN Reason: Keep Vein Open Sodium Chloride (Saline Flush) 2.5 ml FLUSH ASDIRECTED PRN PRN Reason: Keep Vein Open Sodium Chloride (Normal Saline) 10 ml IV ASDIRECTED PRN PRN Reason: IV Use Discontinued Medications Cefazolin Sodium (Ancef) Confirm Administered Dose 2 gm .ROUTE .STK-MED ONE Stop: 11/30/18 16:49 Citric Acid/Sodium Citrate (Bicitra Solution) 30 ml PO ONETIME ONE Stop: 11/30/18 16:53 Last Admin: 12/01/18 19:59 Dose: Not Given Diphenhydramine HCl (Benadryl) 25 mg IVPUSH Q4H PRN PRN Reason: Itching Stop: 12/01/18 16:53 Last Admin: 11/30/18 21:30 Dose: 25 mg Acetaminophen (Ofirmev) Confirm Administered Dose 100 mls @ as directed IV .STK- MED ONE Stop: 11/30/18 16:28 Last Admin: 12/01/18 19:59 Dose: Not Given Sodium Chloride (Normal Saline) Confirm Administered Dose 20 mls @ as directed .ROUTE .STK-MED ONE Stop: 11/30/18 16:49 Cefazolin Sodium/Dextrose 2 gm (/ Premix) 50 mls @ 100 mls/hr IV ONETIME ONE Stop: 11/30/18 17:21 Last Admin: 12/01/18 19:59 Dose: Not Given Ketorolac Tromethamine (Toradol) 30 mg IVPUSH Q6H DAVID Stop: 12/01/18 18:01 Last Admin: 12/01/18 18:15 Dose: 30 mg Morphine Sulfate (Duramorph Pf) Confirm Administered Dose 10 mg .ROUTE .STK-MED ONE Stop: 11/30/18 16:37 Naloxone HCl (Narcan) 0.1 mg IVPUSH ONETIME PRN PRN Reason: Respiratory Depression Stop: 12/01/18 16:53 Ondansetron HCl (Zofran) Confirm Administered Dose 4 mg .ROUTE .STK-MED ONE Stop: 11/30/18 16:14 Oxytocin (Pitocin) Confirm Administered Dose 30 unit .ROUTE .STK-MED ONE Stop: 11/30/18 16:15 Propofol (Diprivan 20 Ml) Confirm Administered Dose 200 mg .ROUTE .STK-MED ONE Stop: 11/30/18 16:14 Terbutaline Sulfate (Brethine) 0.25 mg SUBCUT ONETIME ONE Stop: 11/30/18 11:09 Last Admin: 12/01/18 19:59 Dose: Not Given - Exam General: Reports: Alert, Oriented, Cooperative, No Acute Distress Lungs: Reports: Normal Respiratory Effort GI/Abdominal Exam: Soft, Non-Tender (Female) Exam: Deferred, Vaginal Bleeding Rectal (Female) Exam: Deferred Back Exam: Reports: Normal Inspection, Full Range of Motion Extremities: Normal Inspection, Normal Range of Motion, Non-Tender, No Pedal Edema Skin: Reports: Warm, Dry, Intact Wound/Incisions: Reports: Healing Well Neurological: Reports: No New Focal Deficit, Normal Speech, Normal Tone, Strength Equal Bilateral Psy/Mental Status: Reports: Alert, Normal Affect, Normal Mood
[2018-12-02] MEDS: Docusate Sodium 100 MG Cap PO SCH (08:31)
--- NOTE | 2018-12-02 09:19 | PCM48HPAN ---
Post Anesthesia Note - EVALUATION WITHIN 48HRS OF ANESTHETIC Vital Signs in Normal Range: Yes Patient Participated in Evaluation: Yes Respiratory Function Stable: Yes Airway Patent: Yes Cardiovascular Function Stable: Yes Hydration Status Stable: Yes Pain Control Satisfactory: Yes Nausea and Vomiting Control Satisfactory: Yes Mental Status Recovered: Yes Pulse Rate: 58 Resp Rate: 14 Temperature: 38.7 C Blood Pressure: 118/70 - COMMENTS/OBSERVATIONS Free Text/Narrative:: no anesthesia problems
[2018-12-02] MEDS ORDERED: Measles, Mumps & Rubella Vaccine 0.5 ML SDV SUBCUT ONE (10:48)
== END 2018-12-02 12:00 | disposition home or self-care (01) | DRG 540 ==
LOC: MW.OB 09:59 → OBSVTOIN 17:49 → MW.OB 22:15
PROVIDERS: ADMIT Obstetrics & Gynecology; ATTEND Obstetrics & Gynecology
PROC: 10D00Z1 Extraction of Products of Conception, Low, Open Approach (ICD-10-PCS; principal; 2018-11-30)
DX: O32.1XX0 Maternal care for breech presentation, not applicable or unspecified (principal); O99.52 Diseases of the respiratory system complicating childbirth; J45.909 Unspecified asthma, uncomplicated; O34.03 Maternal care for unspecified congenital malformation of uterus, third trimester; Q51.3 Bicornate uterus; Z23 Encounter for immunization; Z3A.38 38 weeks gestation of pregnancy; Z37.0 Single live birth
CPT/HCPCS: 36415; 59025; 85014; 85018; 85027; 86850; 86900; 86901; 90707; A9270-GY; J0131; J0690; J1200; J1885; J2270; J2300; J2405; J2590; J2704; J7120